=== PATIENT | female | born 1985 | race African-American/Black ===

== ENCOUNTER 2016-08-07 08:25 | Emergency (ER) | payer SELFPAY | END 2016-08-07 10:25 | disposition home or self-care (01) | LOC: ER 08:25 | PROC: 2W3LX1Z Immobilization of Right Lower Extremity using Splint (ICD-10-PCS; principal; 2016-08-07) | DX: M25.561 Pain in right knee (principal); Z88.6 Allergy status to analgesic agent; Z91.040 Latex allergy status | CPT/HCPCS: 73560-RT; 96372; 99283; J1885 ==